=== PATIENT | female | born 2000 | race Two or more races ===

== ENCOUNTER 2022-10-29 14:38 | Outpatient (CLI) | payer OTHER | END 2022-10-29 15:38 | disposition home or self-care (01) | LOC: PRENATAL 14:38 | PROVIDERS: ATTEND Obstetrics & Gynecology Maternal & Fetal Medicine | DX: O26.849 Uterine size-date discrepancy, unspecified trimester (principal); O36.8199 Decreased fetal movements, unspecified trimester, other fetus; O43.219 Placenta accreta, unspecified trimester; Z3A.33 33 weeks gestation of pregnancy ==